=== PATIENT | female | born 1980 ===

== ENCOUNTER → 2020-07-14 | Outpatient (CLI) | payer OTHER | END | disposition home or self-care (01) | LOC: MAMO-SONO 14:00 → SONOGRAMA 14:36 | PROVIDERS: ATTEND Obstetrics & Gynecology Maternal & Fetal Medicine | DX: O26.892 Other specified pregnancy related conditions, second trimester (principal); N20.0 Calculus of kidney; Z34.82 Encounter for supervision of other normal pregnancy, second trimester ==

== ENCOUNTER 2020-07-24 09:36 | Emergency (ER) | payer OTHER ==
[~2020-07-24] VITALS: Ht 121.9 cm; Wt 52.2 kg
[2020-07-24] MEDS ORDERED: PRENA1 TRUE CO1 EACH (09:50)
[2020-07-25] MEDS ORDERED: MACRODANTIN100 M1 (07:57)
== END 2020-07-24 17:37 | disposition home or self-care (01) ==
LOC: ER 09:36
DX: O23.32 Infections of other parts of urinary tract in pregnancy, second trimester (principal); R31.29 Other microscopic hematuria; O26.892 Other specified pregnancy related conditions, second trimester; R10.2 Pelvic and perineal pain; R10.31 Right lower quadrant pain; Z3A.14 14 weeks gestation of pregnancy

== ENCOUNTER 2020-07-25 07:38 | Emergency (ER) | payer OTHER ==
[~2020-07-25] VITALS: Ht 147.3 cm; Wt 52.2 kg
[~2020-07-25 07:38] MED LIST: PRENA1 TRUE CO1 EACH
[2020-07-25] MEDS ORDERED: MACRODANTIN100 M1 (07:57)
== END 2020-07-25 11:15 | disposition home or self-care (01) ==
LOC: ER 07:38
DX: O21.8 Other vomiting complicating pregnancy (principal); Z3A.13 13 weeks gestation of pregnancy

== ENCOUNTER 2020-11-04 21:12 | Inpatient (IN) | payer OTHER ==
[~2020-11-04] VITALS: Ht 148.6 cm; Wt 0.9 kg
[~2020-11-04 21:12] MED LIST changes: +MACRODANTIN100 M1
== END 2020-11-08 18:25 | disposition home or self-care (01) | DRG 788 ==
LOC: OB/GYN 21:12 → LDR 21:12 → OB/GYN 23:49
PROVIDERS: ADMIT Obstetrics & Gynecology; ATTEND Obstetrics & Gynecology
PROC: 4A1HXFZ Monitoring of Products of Conception, Cardiac Rhythm, External Approach (ICD-10-PCS; 2020-11-04)
PROC: 10D00Z1 Extraction of Products of Conception, Low, Open Approach (ICD-10-PCS; principal; 2020-11-04 21:00)
DX: O60.12X0 Preterm labor second trimester with preterm delivery second trimester, not applicable or unspecified (principal); O32.2XX0 Maternal care for transverse and oblique lie, not applicable or unspecified; O34.211 Maternal care for low transverse scar from previous cesarean delivery; Z3A.27 27 weeks gestation of pregnancy; Z37.0 Single live birth; Z20.822 Contact with and (suspected) exposure to COVID-19

== ENCOUNTER 2020-12-09 14:09 | Outpatient (CLI) | payer OTHER | END 2020-12-09 15:00 | disposition home or self-care (01) | LOC: LAB 14:09 | PROVIDERS: ATTEND Pediatrics Neonatal-Perinatal Medicine | DX: R05 Cough (principal); Z03.818 Encounter for observation for suspected exposure to other biological agents ruled out ==

== ENCOUNTER 2020-12-13 16:27 | Outpatient (CLI) | payer OTHER | END 2020-12-13 16:30 | disposition home or self-care (01) | LOC: LAB 16:27 | PROVIDERS: ATTEND Pediatrics Neonatal-Perinatal Medicine | DX: R05 Cough (principal); R06.02 Shortness of breath; Z03.818 Encounter for observation for suspected exposure to other biological agents ruled out ==

== ENCOUNTER → 2020-12-17 07:08 | Outpatient (CLI) | payer OTHER | END | disposition home or self-care (01) | LOC: LAB 07:08 | PROVIDERS: ATTEND Pediatrics Neonatal-Perinatal Medicine | DX: Z03.818 Encounter for observation for suspected exposure to other biological agents ruled out (principal) ==

== ENCOUNTER 2020-12-20 16:48 | Outpatient (CLI) | payer OTHER | END 2020-12-20 17:08 | disposition home or self-care (01) | LOC: LAB 16:48 | DX: Z03.818 Encounter for observation for suspected exposure to other biological agents ruled out (principal) ==

== ENCOUNTER 2020-12-23 16:40 | Outpatient (CLI) | payer OTHER | END 2020-12-23 16:52 | disposition home or self-care (01) | LOC: LAB 16:40 | DX: Z03.818 Encounter for observation for suspected exposure to other biological agents ruled out (principal) ==

== ENCOUNTER 2020-12-27 16:23 | Outpatient (CLI) | payer OTHER | END 2020-12-27 17:10 | disposition home or self-care (01) | LOC: LAB 16:23 | DX: Z03.818 Encounter for observation for suspected exposure to other biological agents ruled out (principal) ==

== ENCOUNTER 2020-12-30 09:20 | Outpatient (CLI) | payer OTHER | END 2020-12-30 09:24 | disposition home or self-care (01) | LOC: LAB 09:20 | DX: Z03.818 Encounter for observation for suspected exposure to other biological agents ruled out (principal) ==